=== PATIENT | female | born 1990 | race Caucasian/White ===

== ENCOUNTER 2020-09-04 09:08 | Outpatient (CLI) | payer BC, SELFPAY ==
--- NOTE | ~2020-09-04 | XR_ITS ---
EXAMINATION: XR wrist RT min 3V DATE: 09/04/2020 09:26 INDICATION: Lateral right wrist pain post fall TECHNIQUE: Posteroanterior, ulnar deviation, oblique, and lateral views of the right wrist were obtai liv. COMPARISON: none FINDINGS: Alignment is normal. No fracture. Joint spaces are normal. Soft tissues are unremarkable. IMPRESSION: 1. Negative right wrist radiographs. Reviewed, dictated and finalized at location A.
== END 2020-09-04 09:09 | disposition home or self-care (01) ==
DX: M25.531 Pain in right wrist (principal)
CPT/HCPCS: 73110